=== PATIENT | male | born 1980 | race Native Hawaiian/Other Pacific Islander ===

== ENCOUNTER 2017-02-11 17:57 | Emergency (ER) | payer OTHER ==
[2017-02-11 18:03] VITALS: TEMP 98; O2SAT 98
--- NOTE | 2017-02-11 18:19 | ED PDOC ---
Syncope/Near Syncope/Dizziness Time Seen by Provider: 02/11/17 18:07 Chief Complaint (Nursing): Dizziness/Lightheaded History Per: Patient Onset/Duration Of Symptoms: Days Current Symptoms Are (Timing): Intermittent Episodes Activity At Onset Of Symptoms: Standing Associated Symptoms Preceding Syncopal Episode: Lightheadedness Seizure Or Post-ictal Symptoms: None Severity: Mild (Palpitations assoc with lightheadedness this AM after taking Cialis. Also developed headache unresponsive to Ibuprofen and 2 ASA. Seen [facility] with abnormal EKG and referred to ED. No chest pain at present.) Past Medical History Vital Signs: Last Vital Signs Temp 98 F 02/11/17 17:59 Pulse 102 H 02/11/17 17:59 Resp 20 02/11/17 17:59 BP 129/77 02/11/17 17:59 Pulse Ox 98 02/11/17 17:59 - Medical History PMH: No Chronic Diseases - Family History Family History: States: Unknown Family Hx - Allergies Allergies/Adverse Reactions: Allergies Allergy/AdvReac Type Severity Reaction Status Date / Time No Known Allergies Allergy Verified 02/11/17 17:59 Review of Systems ROS Statement: Except As Marked, All Systems Reviewed And Found Negative Cardiovascular: Positive for: Palpitations Neurological: Positive for: Headache, Dizziness Physical Exam - Reviewed Nursing Documentation Reviewed: Yes Vital Signs Reviewed: Yes - Physical Exam Appears: Positive for: Non-toxic, No Acute Distress Head Exam: Positive for: ATRAUMATIC, NORMAL INSPECTION, NORMOCEPHALIC Skin: Positive for: Normal Color, Warm, DRY Eye Exam: Positive for: EOMI, Normal appearance, PERRL ENT: Positive for: Normal ENT Inspection Neck: Positive for: Normal, Painless ROM Cardiovascular/Chest: Positive for: Regular Rate, Rhythm Respiratory: Positive for: CNT, Normal Breath Sounds Gastrointestinal/Abdominal: Positive for: Normal Exam, Bowel Sounds, Soft Back: Positive for: Normal Inspection Extremity: Positive for: Normal ROM Neurologic/Psych: Positive for: Alert, Oriented - Laboratory Results Result Diagrams: 02/11/17 18:25 02/11/17 18:25 - ECG O2 Sat by Pulse Oximetry: 98 Medical Decision Making Medical Decision Making: Patient signed out to Dr. Mullen at 1900 pending Chest x-ray. Scribe Attestation Documented by Bri Sy acting as a scribe for Murtaza Meléndez MD. Provider Attestation All medical record entries made by the Scribe were at my direction and personally dictated by me. I have reviewed the chart and agree that the record accurately reflects my personal performance of the history, physical exam, medical decision making, and the department course for this patient. I have also personally directed, reviewed, and agree with the discharge instructions and disposition. Disposition - Clinical Impression Clinical Impression: Headache, Adverse reaction to drug - Patient ED Disposition Is Patient to be Admitted: Transfer of Care - Disposition Disposition: Transfer of Care Disposition Time: 19:00 Condition: STABLE Additional Instructions: Avoid usage of Cialis until you have followed up with your primary care provider Instructions: Adverse Drug Reaction (ED) Forms: [employer] (Luxembourgish) Patient Signed Over To: Vernon Mullen
[2017-02-11 18:39] LABS: BASO % 0.1 % (0.0-2.0); EOS # 0.1 K/uL (0.0-0.7); EOS % 1.3 % (0.0-4.0); HEMATOCRIT 37.2 % (35.0-51.0); LYMPH # 1.9 K/uL (1.0-4.3); LYMPH % 27.2 % (20.0-40.0); MEAN CELL VOLUME 76.8 fl (80.0-94.0); MEAN CORPUSCULAR HGB CONC 33.9 g/dL (33.0-37.0); MEAN PLATELET VOLUME 7.3 fl (7.2-11.7); MONO # 0.6 K/uL (0.0-0.8); MONO % 8.1 % (0.0-10.0); NEUT # 4.5 K/uL (1.8-7.0); NEUT % 63.3 % (50.0-75.0); NRBC % 0.1 % (0.0-0.0); RED CELL DISTRIBUTION WIDTH 12.9 % (11.5-14.5); WHITE BLOOD COUNT 7.1 K/uL (4.8-10.8)
[2017-02-11 18:59] LABS: ALB/GLOB RATIO 1.3 (1.0-2.1); ALKALINE PHOSPHATASE 66 U/L (38-126); ALT/SGPT 54 U/L (21-72); AST/SGOT 40 U/L (17-59); BILIRUBIN,TOTAL 0.3 mg/dl (0.2-1.3); BLOOD UREA NITROGEN 9 mg/dl (9-20); CARBON DIOXIDE 24 mmol/L (22-30); CHLORIDE 105 mmol/L (98-107); GFR AFRICAN-AMERICAN > 60; GLUCOSE,RANDOM 107 mg/dL (75-110); POTASSIUM 3.8 MMOL/L (3.6-5.0); SODIUM 140 mmol/l (132-148)
--- NOTE | 2017-02-11 19:02 | ED PDOC ---
- Laboratory Results Result Diagrams: 02/11/17 18:25 02/11/17 18:25 - ECG O2 Sat by Pulse Oximetry: 98 (RA) Pulse Ox Interpretation: Normal Medical Decision Making Medical Decision Making: Patient signed out to me at [address] Meléndez pending chest x-ray 1947 Labs reviewed show no clinically significant abnormalities. Patient is currently asymptomatic at this time. Chest x-ray performed is negative. Patient was advised to refrain from using cialis until he has been seen by a urologist. Upon provider evaluation patient is medically stable and will be discharged home. Scribe Attestation Documented by Bri Sy acting as a scribe for Vernon Mullen MD. Provider Attestation All medical record entries made by the Scribe were at my direction and personally dictated by me. I have reviewed the chart and agree that the record accurately reflects my personal performance of the history, physical exam, medical decision making, and the department course for this patient. I have also personally directed, reviewed, and agree with the discharge instructions and disposition. Disposition Counseled Patient/Family Regarding: Studies Performed, Diagnosis - Clinical Impression Clinical Impression: Headache, Adverse reaction to drug - POA Present On Arrival: None - Disposition Disposition: Routine/Home Disposition Time: 19:48 Condition: STABLE Additional Instructions: Avoid usage of Cialis until you have followed up with your primary care provider Instructions: Adverse Drug Reaction (ED) Forms: [employer] (Bermudian)
[2017-02-11 19:32] VITALS: BP 134/69; PULSE 91; RESP 18
--- NOTE | 2017-02-12 07:06 | CARD ---
APPROVED REPORT EKG Measurement Heart [id number] <Conclusion> Sinus tachycardia Otherwise normal ECG
--- NOTE | 2017-02-12 11:38 | RAD ---
HISTORY: palpitations COMPARISON: No prior. TECHNIQUE: Chest PA and lateral FINDINGS: LUNGS: No active pulmonary disease. PLEURA: No significant pleural effusion identified. No pneumothorax apparent. CARDIOVASCULAR: Normal. OSSEOUS STRUCTURES: No significant abnormalities. VISUALIZED UPPER ABDOMEN: Normal. OTHER FINDINGS: None. IMPRESSION: No active disease.
== END 2017-02-11 20:00 | disposition home or self-care (01) ==
LOC: H.ER 17:57
DX: T88.7XXA Unspecified adverse effect of drug or medicament, initial encounter (principal); R51 Headache

== ENCOUNTER 2018-01-27 19:12 | Emergency (ER) | payer OTHER ==
[2018-01-27 19:38] VITALS: RESP 18
--- NOTE | 2018-01-27 21:37 | ED PDOC ---
HPI: Fever Time Seen by Provider: 01/27/18 19:56 Additional Comments: 37 yr old male hx hyperthyroid, presents with sore throat and fever onset this morning. Patient states he felt well yesterday, woke up this morning feeling sick, began to have sore throat. He reports that earlier afternoon he developed a fever to 102 and took Tylenol at 6:30 pm for fever. Patient denies cough chills nausea, vomiting, diarrhea or sick contacts. He has not received flu shot this season, which caused concern and wanted to get checked out. No further medical complaints. Past Medical History Reviewed: Historical Data, Nursing Documentation, Vital Signs Vital Signs: Last Vital Signs Temp 101.1 F H 01/27/18 19:36 Pulse 92 H 01/27/18 19:36 Resp 18 01/27/18 19:36 BP 121/89 01/27/18 19:36 Pulse Ox 97 01/27/18 19:36 - Family History Family History: States: Unknown Family Hx - Home Medications Home Medications: Ambulatory Orders Medication Instructions Recorded Ibuprofen [Motrin Tab] 600 mg PO Q6 PRN 5 Days tab 01/27/18 - Allergies Allergies/Adverse Reactions: Allergies Allergy/AdvReac Type Severity Reaction Status Date / Time No Known Allergies Allergy Verified 01/27/18 19:35 Review of Systems ROS Statement: Except As Marked, All Systems Reviewed And Found Negative Constitutional: Negative for: Fever, Chills ENT: Positive for: Throat Pain Respiratory: Negative for: Cough Gastrointestinal: Negative for: Nausea, Vomiting Physical Exam - Reviewed Nursing Documentation Reviewed: Yes Vital Signs Reviewed: Yes - Physical Exam Appears: Positive for: Well, Non-toxic, No Acute Distress Head Exam: Positive for: ATRAUMATIC, NORMAL INSPECTION, NORMOCEPHALIC Eye Exam: Positive for: Normal appearance, EOMI, PERRL. Negative for: Conjunctival injection ENT: Positive for: Normal ENT Inspection, Other (lymph nodes normal) Neck: Positive for: Normal, Painless ROM Cardiovascular/Chest: Positive for: Regular Rate, Rhythm Respiratory: Positive for: CNT, Normal Breath Sounds Neurologic/Psych: Positive for: Alert, Oriented - ECG O2 Sat by Pulse Oximetry: 97 (RA) Pulse Ox Interpretation: Normal Medical Decision Making Medical Decision Making: Time: 19:56 Initial Impression: Initial Plan: --Ibuprofen 600 mg PO --Urine dip --Rapid Influenza --Rapid strep Scribe Attestation: Documented by Terri Gomes, acting as a scribe for Zuri Perez PA-C. Provider Scribe Attestation: All medical record entries made by the Scribe were at my direction and personally dictated by me. I have reviewed the chart and agree that the record accurately reflects my personal performance of the history, physical exam, medical decision making, and the department course for this patient. I have also personally directed, reviewed, and agree with the discharge instructions and disposition. Disposition - Clinical Impression Clinical Impression: Viral upper respiratory illness - Patient ED Disposition Is Patient to be Admitted: No Counseled Patient/Family Regarding: Studies Performed, Diagnosis, Need For Followup, Rx Given - Disposition Disposition: Routine/Home Disposition Time: 22:14 Condition: STABLE Additional Instructions: F/u with your primary care doctor as needed for worsening symptoms or return to ER if you develop shortness of breath or chest pain. Use hand hygiene and avoid close contact with others. You should not return to work until your fever subsides. Get lots of rest and hydrate. Tylenol or Ibuprofen as needed. Prescriptions: Ibuprofen [Motrin Tab] 600 mg PO Q6 PRN 5 Days tab PRN Reason: Fever >100.4 F Instructions: Viral Upper Respiratory Infection, Adult (DC) Forms: [employer] (Vietnamese) Print Language: FAROESE
[2018-01-27 22:14] VITALS: BP 122/70; PULSE 89; TEMP 99.4
[2018-01-28 01:04] VITALS: O2SAT 97
== END 2018-01-27 22:15 | disposition home or self-care (01) ==
LOC: H.ER 19:12
DX: J06.9 Acute upper respiratory infection, unspecified (principal); E05.90 Thyrotoxicosis, unspecified without thyrotoxic crisis or storm